=== PATIENT | female | born 1945 | race Caucasian/White ===

== ENCOUNTER 2019-04-15 06:04 | Emergency (ER) | payer SELFPAY ==
[2019-04-15] MEDS ORDERED: Mag-Al Plus 1200 MG/1200 MG/120 MG/30 ML UDCUP ONE (06:52)
[2019-04-15] MEDS ORDERED: Ondansetron ODT 4 MG TAB ONE (06:52)
[2019-04-15] MEDS ORDERED: Lidocaine Viscous Sol 2% 15 ml UD Cup ONE (06:52)
[2019-04-15 07:18] LABS: INR-International Normal Ratio 1.1; Prothrombin Time 14.2 SEC (12.0-14.7)
[2019-04-15 07:31] LABS: #Basophils 0.1 thou/uL (0.0-0.2); #Lymphocytes 0.7 thou/uL (1.20-3.40); #Monocytes 1.1 thou/uL (0.11-0.59); #Neutrophils 8.5 thou/uL (1.40-6.50); %Basophils 0.6 % (0.0-1.0); %Eosinophils 0.1 % (0.0-10.0); %Monocytes 10.5 % (0.0-10.0); %Neutrophils 81.8 % (42.0-75.0); Hemoglobin 16.4 g/dL (12.0-16.0); Mean Corpuscular HGB CONC 31.2 g/dL (32.0-36.0); Mean Corpuscular Hemoglobin 27.7 pg (27.0-31.0); Mean Corpuscular Volume 88.8 fL (78.0-98.0); Mean Platelet Volume 6.8 fL (7.4-10.4); Platelet Count 327 thou/uL (130-400); RBC Distribution Width 12.8 % (11.5-14.5); Red Blood Cell (RBC) Count 5.92 mill/uL (4.20-5.40); White Blood Cell (WBC) Count 10.4 thou/uL (4.8-10.8)
[2019-04-15 07:56] LABS: Anion Gap 18 mmol/L (10-20); BUN (Urea Nitrogen) 18 mg/dL (9.8-20.1); Calc. Creatinine Clearance 0 mL/min (70-130); Carbon Dioxide 21 mmol/L (23-31); Chloride 104 mmol/L (98-107); Estimated GFR-MDRD 46; Potassium 3.6 mmol/L (3.5-5.1); Sodium 139 mmol/L (136-145)
[2019-04-15 07:57] LABS: ALT (SGPT) 24 U/L (8-55); AST (SGOT) 14 U/L (5-34); Albumin 4.1 g/dL (3.4-4.8); Alkaline Phosphatase 68 U/L (40-150); Bilirubin, Total 0.9 mg/dL (0.2-1.2); Calcium 10.2 mg/dL (7.8-10.44); Globulin 3.8 g/dL (2.4-3.5); Glucose 153 mg/dL (83-110); Lipase 11 U/L (8-78); Protein, Total 7.9 g/dL (6.0-8.3)
[2019-04-15] MEDS ORDERED: Fentanyl 100 MCG/2 ML VIAL ONE (08:20)
--- NOTE | 2019-04-15 08:48 | RAD ---
CHEST 1 VIEW: HISTORY: Pain. FINDINGS: Portable AP upright chest radiograph demonstrates atherosclerosis of the aortic knob. Normal cardiac silhouette. The pulmonary vessels and hilum are normal. Costophrenic angles are clear. No masses or consolidation. There is no pneumothorax. There is air underneath the right hemidiaphragm. The p ossibility of pneumoperitoneum cannot be excluded. IMPRESSION: Air beneath the right hemidiaphragm. Further evaluation with an abdomen and pelvic CT is recommended . Results of the study discussed with Dr. Kulkarni 04/15/2019 at 8:09 a.m. CODE RISA POS: VICENTA
[2019-04-15] MEDS ORDERED: Iopamidol 370 76% 100 ML VIAL ONE (09:00)
[2019-04-15] MEDS ORDERED: Pantoprazole 40 MG VIAL ONE ×2 (09:02→09:35)
[2019-04-15] MEDS ORDERED: Piperacillin/Tazobactam 3.375 GM VIAL ONE (09:04)
[2019-04-15] MEDS ORDERED: Sodium Chloride 0.9% 1,000 ML ONE (09:04)
[2019-04-15] MEDS ORDERED: Sodium Chloride 0.9% 100 ML ONE (09:04)
--- NOTE | 2019-04-15 09:20 | CT ---
CT ABDOMEN AND PELVIS WITH IV CONTRAST: Date: 04/15/19 HISTORY: Abdominal pain, lower abdominal cramping. Free air seen on the earlier chest x-ray at 0635 hours. FINDINGS: The lung bases are clear. There is free air in the abdomen. There is a moderate amount of free fluid in the pelvis. Calcified gallstones are present. There is thickening of the wall of the stomach and p roximal duodenum. There is a small amount of free fluid in the upper abdomen. The liver, spleen, pancreas, and adrenal glands are normal. There are cysts in the kidneys. The small bowel loops are not abnormally dilated. There is colonic diverticulosis. Vascular calcifica tions are present without evidence of aneurysmal dilatation of the abdominal aorta. There are degener ative changes in the spine. IMPRESSION: 1. Free air in the abdomen suspicious for perforated viscus. 2. Free fluid in the abdomen and pelvis. 3. Cholelithiasis. 4. Bilateral renal cysts. 5. Colonic diverticulosis. 6. Thickening of the pichardo of the stomach and proximal duodenum. Discussed over the telephone with ER physician, Dr. Juan Carlos Nieves, at 0847 hours. CODE CR. POS: OFF
[2019-04-15] MEDS ORDERED: Morphine 4 MG/ML VIAL ONE ×2 (09:50→10:06)
== END 2019-04-15 10:44 | disposition short-term general hospital (02) ==
LOC: NAV ERS 06:04
DX: K63.1 Perforation of intestine (nontraumatic) (principal); K21.9 Gastro-esophageal reflux disease without esophagitis; Z79.899 Other long term (current) drug therapy
CPT/HCPCS: 71045; 74177; 80053; 82274; 82550; 83690; 84484; 85025; 85610; 93005; 96365; 96366; 96368; 96375; C9113; J2270; J2543; J3010; J3490; J7050; Q0162; Q9967

== ENCOUNTER 2023-10-27 13:55 | Emergency (ER) | payer SELFPAY ==
[~2023-10-27 13:55] MED LIST: Iopamidol 370 76% 100 ML VIAL ONE
[2023-10-27 15:18] LABS: #Basophils 0.1 thou/uL (0.0-0.2); #Lymphocytes 0.5 thou/uL (1.20-3.40); #Monocytes 0.9 thou/uL (0.11-0.59); #Neutrophils 7.2 thou/uL (1.40-6.50); %Basophils 1.5 % (0.0-1.0); %Eosinophils 0.1 % (0.0-10.0); %Monocytes 9.8 % (0.0-10.0); %Neutrophils 82.6 % (42.0-75.0); Hematocrit 44.9 % (36.0-47.0); Hemoglobin 14.4 g/dL (12.0-16.0); Mean Corpuscular Hemoglobin 28.9 pg (27.0-31.0); Mean Corpuscular Volume 90.4 fl (78.0-98.0); Mean Platelet Volume 6.8 fL (7.4-10.4); Platelet Count 380 10x3/uL (130-400); RBC Distribution Width 12.5 % (11.5-14.5); Red Blood Cell (RBC) Count 4.97 mill/uL (4.20-5.40); White Blood Cell (WBC) Count 8.7 10x3/uL (4.8-10.8)
[2023-10-27] MEDS ORDERED: Sodium Chloride 0.9% 1,000 ML ONE (15:29)
[2023-10-27 15:35] LABS: Bilirubin Small (Negative); Blood, Urine Trace (Negative); Glucose, Urine (Dipstick) Negative (Negative); Ketone, Urine 15 mg/dL (Negative); Leukocyte Trace (Negative); Nitrite Negative (Negative); Protein, Urine (Dipstick) 30 mg/dL (Neg-Trace); Urobilinogen 0.2 mg/dL (Less than 2); pH, Urine 5.5 (5.0-9.0)
[2023-10-27 15:37] LABS: Clarity Hazy (Clear)
[2023-10-27 15:38] LABS: Bacteria/HPF 1+ HPF (None Seen); CAUTI Indications for Culture Pelvic or flank pain; Calcium Oxalate Crystals 1+ HPF (None Seen); Mucous/LPF 1+ LPF (<2+); RBC/HPF 0-3 HPF (0-3); WBC/HPF 0-3 HPF (0-3)
[2023-10-27 15:38] LABS: ALT (SGPT) 13 U/L (8-55); AST (SGOT) 19 U/L (5-34); Albumin 3.8 g/dL (3.4-4.8); Alkaline Phosphatase 73 U/L (40-110); Anion Gap 19 mmol/L (10-20); BUN (Urea Nitrogen) 18 mg/dL (9.8-20.1); Bilirubin, Total 0.4 mg/dL (0.2-1.2); Calc. Creatinine Clearance 0 mL/min (70-130); Calcium 10.1 mg/dL (7.8-10.44); Carbon Dioxide 21 mmol/L (23-31); Chloride 103 mmol/L (98-107); Estimated GFR 70; Globulin 4.1 g/dL (2.4-3.5); Glucose 120 mg/dL (83-110); Lipase 7 U/L (8-78); Potassium 4.5 mmol/L (3.5-5.1); Protein, Total 7.9 g/dL (5.8-8.1); Sodium 138 mmol/L (136-145)
[2023-10-27 15:39] LABS: Troponin I 0.014 ng/mL (< 0.028)
[2023-10-27 15:40] LABS: Urine Culture Reflex No No
[2023-10-27] MEDS ORDERED: Pantoprazole 40 MG VIAL ONE (17:44)
[2023-10-27] MEDS ORDERED: Sodium Chloride 0.9% 500 ML ONE (17:44)
== END 2023-10-27 19:15 | disposition home or self-care (01) ==
LOC: NAV ERS 13:55
DX: K74.60 Unspecified cirrhosis of liver (principal)
CPT/HCPCS: 71045; 74177; 80053; 81001; 83690; 84484; 85025; 93005; 96361; 96374; C9113; J7030; J7050; Q9967